=== PATIENT | male | born 2000 | race Caucasian/White ===

== ENCOUNTER 2023-10-31 22:35 | Emergency (ER) | payer OTHER, SELFPAY ==
[2023-10-31 22:50] VITALS: BP 121/83; PULSE 106; RESP 18; TEMP 36.6; O2SAT 96; BMI 30.7
--- NOTE | 2023-10-31 23:00 | PC.NURSE ---
pt fell scraping his hands, friends brought pt to the ED pt denies any other problems
--- NOTE | 2023-10-31 23:13 | ED_ITS ---
HPI - Wound/Laceration General Chief Complaint: Wound/Laceration Stated Complaint: fall- bloody hands. Time Seen by Provider: 10/31/23 22:56 Source: patient Mode of arrival: Ambulatory History of Present Illness HPI narrative: Patient is intoxicated. He is here with friends. They were at a [employer] party this evening. He had multiple falls while being intoxicated. He has multiple abrasions and contusions on his hands. No other injuries from the falls. Review of Systems Constitutional Constitutional: Reports system reviewed and no additional complaints, except as documented Integumentary/Breasts Skin/Breast: Reports system reviewed and no additional complaints, except as documented Psychiatric Psychiatric: Reports system reviewed and no additional complaints, except as documented Patient History Social History Smoking Status: Never smoker Smoking Status: Never smoker alcohol intake frequency: holidays/special occasions only Exam Initial Vital Signs Initial Vital Signs: Vital Signs Temperature 97.9 F 10/31/23 22:50 Pulse Rate 106 H 10/31/23 22:50 Respiratory Rate 18 10/31/23 22:50 Blood Pressure 121/83 10/31/23 22:50 Pulse Oximetry 96 10/31/23 22:50 Oxygen Delivery Method Room Air 10/31/23 22:50 Skin Other: Patient has multiple abrasions on his hands. They were washed here in the ER. No active bleeding. Neuro Other: Patient is obviously intoxicated Extrem Other: Full range of motion of hands elbows shoulders knees Course Vital Signs Vital signs: Vital Signs - 8 hr 10/31/23 22:50 Temperature 97.9 F Pulse Rate 106 H Respiratory Rate 18 Blood Pressure 121/83 Pulse Oximetry 96 Oxygen Delivery Method Room Air MDM - Wound/Laceration MDM Narrative Medical decision making narrative: Patient with multiple abrasions on his hands. They were washed here in the ER. No signs of infection. No signs of foreign body. I approximated the edges of 1 abrasion with Steri-Strips although this was not a overt laceration. No indication for any imaging studies. Will discharge patient home under care of the friends that he is with. He was given care instructions and return precautions Discharge Plan Departure Patient Disposition: Home Clinical Impression: Laceration, Abrasion Instructions: DI for Minor Laceration Activity Restrictions/Additional Instructions: You can shower like normal. You can put topical antibiotic ointment over the abrasions on your hands. Return to the emergency department for new symptoms. Stand Alone Forms: Patient Portal/API
== END 2023-10-31 23:24 | disposition home or self-care (01) ==
PROVIDERS: Emergency Provider Emergency Medicine
DX: S60.512A Abrasion of left hand, initial encounter (principal); S60.511A Abrasion of right hand, initial encounter; W19.XXXA Unspecified fall, initial encounter
CPT/HCPCS: 99281; 99282